=== PATIENT | female | born 1980 | race Two or more races ===

== ENCOUNTER → 2024-09-25 | Emergency (ER) | payer SELFPAY ==
[~2024-09-25] MED LIST: Ketorolac Tromethamine 30 MG (1 mL) VIAL ONE; Metoclopramide HCl 10 MG (2 mL) VIAL ONE; Ondansetron PF 4 MG/2 ML Vial ONE; diphenhydrAMINE 25 MG CAP ONE; diphenhydrAMINE 50 MG/ML VIAL ONE
== END ==
LOC: ERS 15:17
DX: G43.909 Migraine, unspecified, not intractable, without status migrainosus (principal); I10 Essential (primary) hypertension; R29.700 NIHSS score 0; Z79.899 Other long term (current) drug therapy
CPT/HCPCS: 96374; 96375; J1200; J1885; J2405; J2765

== ENCOUNTER → 2024-09-30 | Emergency (ER) | payer SELFPAY ==
[~2024-09-30] MED LIST changes: -Ketorolac Tromethamine 30 MG (1 mL) VIAL ONE; +Lisinopril 20 MG TAB ONE; -Metoclopramide HCl 10 MG (2 mL) VIAL ONE; -Ondansetron PF 4 MG/2 ML Vial ONE; -diphenhydrAMINE 25 MG CAP ONE; -diphenhydrAMINE 50 MG/ML VIAL ONE
[2024-09-30 01:48] LABS: #Basophils Less than 0.03 10x3/uL (0.0-0.2); %Basophils 0.3 % (0.0-1.0); %Eosinophils 1.8 % (0.0-10.0); %Lymphocytes 37.2 % (21.0-51.0); %Monocytes 7.7 % (0.0-10.0); %Neutrophils 52.8 % (42.0-75.0); Hematocrit 37.3 % (36.0-47.0); Hemoglobin 12.6 g/dL (12.0-16.0); Mean Corpuscular HGB CONC 33.8 g/dL (32.0-36.0); Mean Corpuscular Hemoglobin 31.7 pg (27.0-31.0); Mean Platelet Volume 9.4 fL (7.4-10.4); Platelet Count 220 10x3/uL (130-400); RBC Distribution Width 12.6 % (11.5-14.5); Red Blood Cell (RBC) Count 3.97 mill/uL (4.20-5.40)
[2024-09-30 02:09] LABS: ALT (SGPT) 18 U/L (8-55); AST (SGOT) 23 U/L (5-34); Albumin 3.9 g/dL (3.5-5.0); Alkaline Phosphatase 46 U/L (40-110); Anion Gap 14 mmol/L (10-20); BUN (Urea Nitrogen) 10 mg/dL (7.0-18.7); Bilirubin, Total 0.4 mg/dL (0.2-1.2); Calc. Creatinine Clearance 0 mL/min (70-130); Calcium 8.9 mg/dL (7.8-10.44); Carbon Dioxide 21 mmol/L (22-29); Chloride 106 mmol/L (98-107); Estimated GFR 109; Globulin 3.5 g/dL (2.4-3.5); Glucose 112 mg/dL (70-105); Potassium 3.9 mmol/L (3.5-5.1); Protein, Total 7.4 g/dL (6.0-8.3); Sodium 137 mmol/L (136-145)
[2024-09-30 02:11] LABS: Troponin I Less than 0.010 ng/mL (< 0.028)
== END ==
LOC: ERS 00:38
DX: J45.901 Unspecified asthma with (acute) exacerbation (principal); I10 Essential (primary) hypertension
CPT/HCPCS: 36415; 71045; 80053; 83880; 84484; 85025; 93005